=== PATIENT | female | born 1945 | race Caucasian/White ===

== ENCOUNTER 2016-12-17 06:16 | Day surgery (SDC) | payer OTHER, BC ==
[2016-12-12 10:51] VITALS: BMI 35.8
[2016-12-17] MEDS ORDERED: BACITRACIN 3.5 GM OPTHALMIC OINT TUBE ONE (07:21)
[2016-12-17] MEDS ORDERED: TETRACAINE 0.5% OPHTH SOLN 2 ML BOTTLE ONE (07:21)
[2016-12-17] MEDS ORDERED: OXYMETAZOLINE 0.05% NASAL SOLUTION 15 ML BOTTLE NS ONE (07:21)
[2016-12-17] MEDS ORDERED: THROMBIN (BOVINE) 5,000 UNIT VIAL TP ONE (07:21)
[2016-12-17] MEDS ORDERED: POVIDONE-IODINE 5% OPHTHALMIC PREP 30 ML SOLUTION ONE (07:21)
[2016-12-17] MEDS ORDERED: BUPIVACAINE HCL/PF 0.5% (5MG/ML) 10 ML VIAL ONE (07:22)
[2016-12-17] MEDS ORDERED: LIDOCAINE 1%/EPI 1:100000 (20 ML MULTI DOSE VIAL) ONE ×2 (07:22→07:48)
[2016-12-17] MEDS ORDERED: PROPOFOL 20 ML ONE ×7 (07:29→08:55)
[2016-12-17] MEDS ORDERED: MIDAZOLAM HCL 2 MG/2 ML SINGLE DOSE VIAL ONE (07:30)
[2016-12-17] MEDS ORDERED: SUCCINYLCHOLINE CHLORIDE 200 MG/10 ML VIAL ONE (07:30)
[2016-12-17] MEDS ORDERED: ceFAZolin SODIUM 1 GM VIAL ONE (08:03)
[2016-12-17] MEDS ORDERED: DEXAMETHASONE SOD PHOSPHATE 4 MG/1 ML VIAL ONE (08:27)
[2016-12-17] MEDS ORDERED: ONDANSETRON 4 MG/2 ML VIAL ONE (08:27)
[2016-12-17] MEDS ORDERED: ACETAMINOPHEN 500 MG TABLET (FP) PO PRN (09:20)
[2016-12-17] MEDS ORDERED: ONDANSETRON 4 MG/2 ML VIAL IVPUSH PRN (09:26)
[2016-12-17] MEDS ORDERED: oxyCODONE HCL 5 MG TABLET PO PRN (09:26)
[2016-12-17] MEDS ORDERED: ALBUTEROL SO4 0.083% IH SOL 2.5 MG/3 ML VIAL.NEB. NEB PRN (09:27)
[2016-12-17] MEDS ORDERED: LACTATED RINGERS SOLUTION 1,000 ML IV SCH (09:30)
[2016-12-17] MEDS ORDERED: LABETALOL HCL 5 MG/1 ML (100MG/20 ML VIAL) IVPUSH ONE (10:10)
[2016-12-17 10:56] VITALS: TEMP 98.1
[2016-12-17 11:43] VITALS: BP 135/78; PULSE 66
--- NOTE | 2016-12-17 13:34 | OP ---
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 PROCEDURE: 1. External dacryocystorhinostomy, right. 2. Lacrimal sac biopsy. 3. Silicone intubation, right lacrimal system. 4. Canaliculoplasty, right lower lid. 5. Endoscopy. SURGEON: Emanuel Gee MD ANESTHESIA: Local standby with a circuit. COMPLICATONS: None. ESTIMATED BLOOD LOSS: 5 to 10 mL. OPERATION REPORT: Patient was brought to the operating room, placed on the operating room table. Vital signs monitored by Anesthesia. Tetracaine was placed in both eyes. A tear trough incision was made in the right tear trough extending to the medial canthal tendon. Patient was placed under anesthesia. After a time-out was performed, a 50/50 mixture of 2% Xylocaine with 1:100,000 epinephrine and 0.5% Marcaine was injected in the right medial canthus, right lower lid, right upper lid, dorsal nasal artery and anterior lacrimal crest. Total 5 to 6 mL. Then, under direct visualization, the right naris was injected, the middle meatus, the septum, and the external naris, and it was packed with Cottonoids moistened with Afrin. The patient was prepped and draped in the usual fashion exposing both eyes. Left eye was closed. Tear trough incision was made on the right side, and gentle blunt spreading primarily was used to contain the anterior lacrimal crest and identify the anterior lumen and medial canthal tendon. The inferior portion of the medial canthal tendon and periosteum were incised allowing reflection of the periosteum laterally away from the sac all the way down to the posterior lacrimal crest. The lacrimal bone was penetrated, and upbiting Kerrison rongeurs were used to create a large osteotomy extending from the anterior lacrimal crest to the posterior lacrimal crest, from the medial canthal tendon down to the nasolacrimal duct. Nasal mucosa was sacrificed and removed at this point. The upper and lower puncta were dilated below. Puncta were then intubated with multiple bone probes, but they could not pass into the sac. There was a significant obstruction lateral to the junction of the canaliculus and sac. The upper canaliculus could be passed with a probe, and this tented the medial wall of the sac medially, and the sac was opened on its medial surface with a 12-blade, and anterior and posterior lacrimal sac flaps were created, and the posterior lacrimal sac flap was biopsied. The lower canaliculus could not be passed despite multiple attempts, and even dissection from within the sac toward the canaliculus did not uncover the probe. Therefore, an 18-gauge Angiocath was carefully threaded through to the canaliculus. It was after multiple dilating bone probes were passed until it reached the obstruction, and then, it was advanced into the lacrimal sac trephining a new passageway for the canaliculus into the sac. At this point, the system was intubated with Mello probes, and the newly trephined lower medial portion of the canaliculus and the upper canaliculus and these were retrieved through the right external naris with Mello hook. The anterior lacrimal sac flap was secured to the periosteum anterior to the osteotomy site after all the thrombin-soaked gauzes were removed using double-armed 4-0 chromic and then interrupted 4-0 chromic sutures covering the internal fistula. The subcuticular tissues were closed with 5-0 chromic, and the skin was closed with a running 6-0 plain suture with plastic technique. The stents were removed from the probe. Stents were tied with locking knots and secured to the right external naris with a single 6-0 Prolene with minimal tension on the left and right medial canthus. The silicone moved freely through the system. Endoscope was introduced demonstrating right septal deviation, but reasonable hemostasis and no impingement on the internal osteotomy. Afrin was sprayed into the nose, Bacitracin ointment was placed on the sutures, and the patient was awakened from anesthesia and taken to the recovery room in stable condition. Ashlie [id number]
--- NOTE | 2016-12-19 17:05 | PATH ---
Surgical Pathology Report Patient Name: DORCAS SHELL [facility]. Rec. #: [id number] /Age/Gender: 1945 (Age: 71) / F Account: [id number] Location: [facility] Taken: 12/17/2016 Received: 12/18/2016 Reported: 12/19/2016 Physicians: Emanuel Gee Specimen(s) Received RIGHT LACRIMAL SAC Clinical History Right blocked tear duct Final Diagnosis RIGHT LACRIMAL SAC, EXCISION: LACRIMAL SAC TISSUE SHOWING CHRONIC INFLAMMATION AND FIBROSIS. Electronically Signed Nubia Lakhani M.D. Gross Description Received in formalin, labeled "right lacrimal sac" is a huitron, irregular portion of soft tissue measuring 0.1 cm. in greatest dimension. The specimen is submitted in toto in one cassette. 12/18/201612/18/2016
== END 2016-12-17 11:44 | disposition home or self-care (01) ==
LOC: FASU 06:16
PROVIDERS: ATTEND Ophthalmology
PROC: 09BK0ZX Excision of Nasal Mucosa and Soft Tissue, Open Approach, Diagnostic (ICD-10-PCS; 2016-12-17)
PROC: 09JK8ZZ Inspection of Nasal Mucosa and Soft Tissue, Via Natural or Artificial Opening Endoscopic (ICD-10-PCS; 2016-12-17)
PROC: 081X0Z3 Bypass Right Lacrimal Duct to Nasal Cavity, Open Approach (ICD-10-PCS; principal; 2016-12-17 08:13)
DX: H04.551 Acquired stenosis of right nasolacrimal duct (principal); H04.221 Epiphora due to insufficient drainage, right side
CPT/HCPCS: 88304-TC; 94760

== ENCOUNTER 2017-01-07 07:28 | Day surgery (SDC) | payer OTHER, BC ==
[2016-12-31 10:01] VITALS: BMI 35.5
[2017-01-07] MEDS ORDERED: OXYMETAZOLINE 0.05% NASAL SOLUTION 15 ML BOTTLE NS ONE (08:36)
[2017-01-07] MEDS ORDERED: POVIDONE-IODINE 5% OPHTHALMIC PREP 30 ML SOLUTION ONE (08:36)
[2017-01-07] MEDS ORDERED: TETRACAINE 0.5% OPHTH SOLN 2 ML BOTTLE ONE (08:36)
[2017-01-07] MEDS ORDERED: THROMBIN (BOVINE) 5,000 UNIT VIAL TP ONE (08:36)
[2017-01-07] MEDS ORDERED: LIDOCAINE 1%/EPI 1:100000 (20 ML MULTI DOSE VIAL) ONE (08:36)
[2017-01-07] MEDS ORDERED: BUPIVACAINE HCL/PF 0.5% (5MG/ML) 10 ML VIAL ONE (08:36)
[2017-01-07] MEDS ORDERED: BACITRACIN 3.5 GM OPTHALMIC OINT TUBE ONE (08:36)
[2017-01-07] MEDS ORDERED: ACETAMINOPHEN 500 MG TABLET (FP) PO PRN (09:11)
[2017-01-07] MEDS ORDERED: MIDAZOLAM HCL 2 MG/2 ML SINGLE DOSE VIAL ONE (09:31)
[2017-01-07] MEDS ORDERED: ePHEDrine SULFATE 50 MG/1 ML AMPULE ONE ×2 (09:55→09:56)
[2017-01-07] MEDS ORDERED: PROPOFOL 20 ML ONE ×3 (09:55→11:06)
[2017-01-07] MEDS ORDERED: PROMETHAZINE HCL 25 MG/1 ML VIAL IVPUSH PRN (11:31)
[2017-01-07] MEDS ORDERED: ONDANSETRON 4 MG/2 ML VIAL IVPUSH PRN (11:31)
[2017-01-07] MEDS ORDERED: oxyCODONE HCL 5 MG TABLET PO PRN (11:31)
[2017-01-07] MEDS ORDERED: LACTATED RINGERS SOLUTION 1,000 ML IV SCH (11:45)
[2017-01-07] MEDS ORDERED: ACETAMINOPHEN 500 MG TABLET (FP) ONE (12:22)
--- NOTE | 2017-01-07 13:08 | OP ---
DATE OF OPERATION: 01/07/2017 PREOPERATIVE DIAGNOSIS: Nasolacrimal obstruction, canalicular obstruction with epiphora. POSTOPERATIVE DIAGNOSIS: Nasolacrimal obstruction, canalicular obstruction with epiphora, with complete canalicular obstruction, upper and lower lid. PROCEDURES: 1. Examination under anesthesia. 2. Conjunctival dacryocystorhinostomy, left. 3. Lacrimal sac biopsy, left. 4. Attempt at canaliculoplasty, left lower lid. 5. Endoscopy. SURGEON: Shamir Chowdhury MD ANESTHESIA: General LMA. ESTIMATED BLOOD LOSS: 5-10 mL. COMPLICATIONS: None. DESCRIPTION OF PROCEDURE: Patient brought to the operating room, placed on the operating room table. Vital signs monitored per Anesthesia. Tetracaine was placed in both eyes. She was placed under LMA anesthesia. Tear trough line was marked on the left side. Timeout was performed, and a 50/50 mixture of 2% Xylocaine, 1:100,000 epinephrine, 0.5% Marcaine was injected in the tear trough, lateral side of the nose, nasal third of the upper and lower lid, middle meatus, external naris. Left nostril was packed under direct visualization with cottonoids moistened with Afrin. The patient was prepped and draped in the usual sterile fashion exposing both eyes. Right eye was taped close with Steri-Strip. Tear trough incision was made with a 15-blade. This was carried down with sharp and blunt dissection to the anterior lachrymal crest, and angular vein was cauterized. The periosteum was incised and reflected laterally, as was the anterior limb of the medial canthal tendon, exposing the lachrymal fossa which was penetrated posterior to the maxillary bone. An upbiting Kerrison rongeur was used to create an osteotomy centered on the anterior lacrimal crest from the medial canthal tendon to the nasolacrimal duct. Some nasal mucosa was removed during this process. The upper and lower punctate were not dilated. The nose was repacked with cottonoids moistened with thrombin and small amount of turbinectomy was performed as well to make way for the internal fistula. Following this, the upper and lower puncta were dilated and attempts were made to pass the bone probes through the canaliculus into the sac. On the lower canaliculus it could be advanced through multiple strictures, tenting the medial wall of the sac, and the sac was opened with a 12-blade and found to be full of scar tissue, which was biopsied. Anterior and posterior lachrymal duct flaps were created with relaxing incisions, but no real passage of the lower canaliculus to the sac could be clearly created even the tip of the probe could be identified and brought in through the lateral wall of the sac. The passageway was so tight and restrictive and there was way too much resistance on movement of the probe through the lower canaliculus that this would not be a functioning canaliculus. The upper canaliculus could not even be probed through the lachrymal sac. Therefore, it was clear that simple intubation of the lower canaliculus would not be effective in relief of the epiphora and that a conjunctival dacryocystorhinostomy was indicated. Therefore, the caruncle was injected with 2% Xylocaine, 1:100,000 epinephrine. The caruncle was excised. Cautery was used for hemostasis, and using a straight 15-degree Micro-Sharp, passageway was made from the caruncular bed into the middle meatus. This was widened with bone probe punctal dilator and eventually with a straight hemostat due to the presence of scar tissue in the lateral wall of the sac. Once the passageway was opened adequately, a small amount of middle turbinectomy was performed. The middle turbinate was encroaching on the passageway of the Dubon tube and small turbinectomy was performed with minimal bleeding. The probe was advanced from the caruncular bed and measured 16 mm. It was felt that 12-mm Dubon tube would be appropriate, and therefore a 12-mm Dubon tube with a suture hole was passed over bone probe, which was then passed through the tract and then the Dubon tube was advanced and seated nicely in the middle meatus and caruncular bed. The anterior lachrymal sac flap was sutured to the anterior mucosal flap and to periosteum anterior to the osteotomy with double-arm 4-0 chromic suture. Deep tissues were closed with 5-0 chromic suture, as were subcuticular tissues, and the skin was closed with interrupted and running 6-0 plain suture. The Dubon tube was secured into the medial canthal tissues with double-arm 5-0 Prolene suture passed through the suture hole and tied through a bolster. Mastisol was placed on the suture. The bone probe was removed. The endoscope was introduced, demonstrating good positioning and clearance of the Dubon tube with no impingement on septum or turbinate. Afrin was sprayed in the nose, and the patient was awakened and taken to the recovery room. SHAMIR CHOWDHURY M.D. [id number]
[2017-01-07 13:14] VITALS: TEMP 97.6
[2017-01-07 13:16] VITALS: BP 139/72; PULSE 68
--- NOTE | 2017-01-09 12:38 | PATH ---
Surgical Pathology Report Patient Name: DORCAS SHELL [facility]. Rec. #: [id number] /Age/Gender: 1945 (Age: 72) / F Account: [id number] Location: [facility] Taken: 01/07/2017 Received: 01/07/2017 Reported: 01/09/2017 Physicians: Emanuel Gee Specimen(s) Received A: LEFT LACRIMAL SAC B: INSIDE LACRIMAL SAC (LEFT) C: CARUNCLE LEFT EYE Clinical History Left blocked tear duct Final Diagnosis A. LEFT LACRIMAL SAC, BIOPSY: BENIGN FIBROUS TISSUE WITH CHRONIC INFLAMMATION. B. INSIDE LACRIMAL SAC LEFT, BIOPSY: BENIGN GLANDULAR MUCOSA WITH MARKED CHRONIC INFLAMMATION. C. LEFT EYE CARUNCLE, EXCISION: SKIN AND CONJUNCTIVAL TISSUE WITH NON-SPECIFIC CHRONIC INFLAMMATION. Electronically Signed Low Velázquez M.D. Gross Description A. Received in formalin labeled "left lacrimal sac," is a 0.1 cm in greatest dimension huitron soft tissue fragment. The specimen is submitted in toto in one cassette. B. Received in formalin labeled "inside lacrimal sac left," is a 0.1 cm in greatest dimension huitron soft tissue fragment. The specimen is submitted in toto in one cassette. C. Received in formalin labeled "caruncle left eye," are 2 huitron soft tissue fragments measuring 0.3 and 0.4 cm in greatest dimension. The specimens are submitted in toto in one cassette. 01/08/201701/08/2017
== END 2017-01-07 13:00 | disposition home or self-care (01) ==
LOC: FASU 07:28
PROVIDERS: ATTEND Ophthalmology
PROC: 081Y0Z3 Bypass Left Lacrimal Duct to Nasal Cavity, Open Approach (ICD-10-PCS; principal; 2017-01-07 10:04)
DX: H04.552 Acquired stenosis of left nasolacrimal duct (principal); H04.222 Epiphora due to insufficient drainage, left side
CPT/HCPCS: 88304-TC; 94760

== ENCOUNTER 2017-02-04 07:40 | Day surgery (SDC) | payer OTHER, BC ==
[2017-01-31 14:30] VITALS: BMI 34.8
[2017-02-04] MEDS ORDERED: TETRACAINE 0.5% OPHTH SOLN 2 ML BOTTLE ONE (08:47)
[2017-02-04] MEDS ORDERED: BUPIVACAINE HCL/PF 0.5% (5MG/ML) 10 ML VIAL ONE (08:47)
[2017-02-04] MEDS ORDERED: BACITRACIN 3.5 GM OPTHALMIC OINT TUBE ONE (08:47)
[2017-02-04] MEDS ORDERED: LIDOCAINE 1%/EPI 1:100000 (20 ML MULTI DOSE VIAL) ONE (08:47)
[2017-02-04] MEDS ORDERED: POVIDONE-IODINE 5% OPHTHALMIC PREP 30 ML SOLUTION ONE (08:47)
[2017-02-04] MEDS ORDERED: ACETAMINOPHEN 500 MG TABLET (FP) PO PRN (09:02)
[2017-02-04] MEDS ORDERED: PROPOFOL 20 ML ONE ×5 (09:27→12:23)
[2017-02-04] MEDS ORDERED: MIDAZOLAM HCL 2 MG/2 ML SINGLE DOSE VIAL ONE (09:27)
[2017-02-04] MEDS ORDERED: LIDOCAINE HCL/PF 2% SDV 5ML VIAL ONE (09:28)
[2017-02-04] MEDS ORDERED: LIDOCAINE HCL 2% JELLY (5 ML/TUBE) ONE (09:28)
[2017-02-04] MEDS ORDERED: ONDANSETRON 4 MG/2 ML VIAL ONE (09:28)
[2017-02-04] MEDS ORDERED: DEXAMETHASONE SOD PHOSPHATE 4 MG/1 ML VIAL ONE (09:28)
[2017-02-04] MEDS ORDERED: ceFAZolin SODIUM 1 GM VIAL ONE (09:28)
[2017-02-04] MEDS ORDERED: OXYMETAZOLINE 0.05% NASAL SOLUTION 15 ML BOTTLE NS ONE (09:36)
[2017-02-04] MEDS ORDERED: ePHEDrine SULFATE 50 MG/1 ML AMPULE ONE (10:29)
[2017-02-04] MEDS ORDERED: DESFLURANE GAS 240 ML BOTTLE IH ONE (11:53)
[2017-02-04] MEDS ORDERED: oxyCODONE HCL 5 MG TABLET PO PRN ×2 (12:46)
[2017-02-04] MEDS ORDERED: ONDANSETRON 4 MG/2 ML VIAL IVPUSH PRN (12:46)
[2017-02-04] MEDS ORDERED: PROMETHAZINE HCL 25 MG/1 ML VIAL IVPUSH PRN (12:46)
[2017-02-04] MEDS ORDERED: LACTATED RINGERS SOLUTION 1,000 ML IV SCH (13:00)
[2017-02-04 13:48] VITALS: PULSE 73
[2017-02-04 15:07] VITALS: TEMP 98
[2017-02-04 16:42] VITALS: BP 139/69
--- NOTE | 2017-02-06 11:02 | PATH ---
Surgical Pathology Report Patient Name: DORCAS SHELL [facility]. Rec. #: [id number] /Age/Gender: 1945 (Age: 72) / F Account: [id number] Location: [facility] Taken: 02/04/2017 Received: 02/04/2017 Reported: 02/06/2017 Physicians: Emanuel Gee Specimen(s) Received A: LACRIMAL SAC RIGHT B: BONES BIOPSY RIGHT C: COLON LACRIMAL INTUBATION SET RIGHT Clinical History Preoperative diagnosis: Blocked tear duct Postoperative diagnosis: Same Final Diagnosis A. RIGHT LACRIMAL SAC, BIOPSY: FIBROUS TISSUE WITH CHRONIC INFLAMMATION, AND ADMIXED BLOOD VESSELS. NO INTACT EPITHELIUM IDENTIFIED. B. BONE, RIGHT, BIOPSY: FRAGMENTS OF BENIGN BONE, AND RESPIRATORY MUCOSA WITH CHRONIC INFLAMMATION. C. COLON LACRIMAL INTUBATION SAC, RIGHT EYE, REMOVAL: FIBRINOPURULENT MATERIAL WITH ASSOCIATED BACTERIAL FORMS NOTED. PORTION OF TUBING PRESENT (GROSS ONLY). Comment: Also see [id number] and [id number]. Electronically Signed Low Velázquez M.D. Gross Description A. Received in formalin labeled "lacrimal sac right," is a 0.3 cm greatest dimension huitron soft tissue fragment. The specimen is submitted in toto in one cassette. B. Received in formalin labeled "bones biopsy right," is a 0.8 x 0.6 x 0.3 cm aggregate of huitron bone fragments. The specimen is submitted in toto in one cassette, following decalcification. C. Received in formalin labeled "Colon lacrimal intubation set right eye," is a 0.9 x 0.5 x 0.1 cm portion of huitron soft tissue. Also received within the same container is a 5.5 cm in length clear portion of tubing. The soft tissue is submitted in toto in one cassette. DL/02/05/2017 saudi02/05/2017
--- NOTE | 2017-02-07 07:56 | OP ---
DATE OF OPERATION: 02/04/2017 PREOPERATIVE DIAGNOSIS: Nasolacrimal duct obstruction, both eyes. PROCEDURE: 1. Conjunctival dacryocystorhinostomy on the right. 2. Lacrimal sac biopsy on the right. 3. Removal of silicone stent, right. 4. Endoscopy, right and left. 5. Conjunctival dacryocystorhinostomy on the left. SURGEON: Shamir Chowdhury MD ANESTHESIA: General. COMPLICATIONS: None. ESTIMATED BLOOD LOSS: 10-20 mL. DESCRIPTION OF OPERATIVE PROCEDURE: Patient brought to the operating room, placed under general anesthesia. Tear trough was marked in the right tear trough. A 50:50 mixture of 2% Xylocaine and 1:100,000 epinephrine and 0.5% Marcaine was injected in the tear trough down to the lateral wall of the nose, dorsal nasal artery, and anterior lacrimal crest and in the middle meatus and the septum, middle turbinate which was then packed on the right and left with cottonoids moistened with Afrin. The patient was then prepped and draped in usual sterile fashion, exposing both eyes. The left eye was taped closed, and the following procedures performed on the right. Incision was made in the tear trough. This was carried down to the periosteum. Gentle spreading. A [place] needle was used to incise the periosteum and the anterior limb of the medial canthal tendon. Tissues were reflected laterally, exposing the lacrimal sac fossa. There was a mucosal anastomosis from prior DCR which was released, and this allowed for access to the nose. The osteotomy was widened significantly, and an anterior lacrimal sac flap was created. The upper and lower puncta were dilated, and the medial wall of the sac was incised with a 12 blade, creating anterior and posterior medial lacrimal sac flaps. The silicone stents were seen and passed freely through the system. However, they were nonfunctional as far as the patient was concerned. Therefore, they were removed. A caruncle was excised, and in the bed of the caruncle, an 18-gauge angio, followed by a micro sharp and then a punctal dilator was passed to create a track from the caruncular bed into the middle meatus. Part of the middle turbinate was removed, and also part of the ethmoid was removed in this process of creating this internal fistula. Then, a Dubon tube 13 mm x 4 mm was passed over a Alejandre probe and passed through the track which was created. The anterior lacrimal sac flap was sutured to the anterior nasal mucosal flap with a mattressed 4-0 chromic suture which was also secured to the periosteum. Subcuticular tissues were closed with 5-0 chromic and the skin with a running 6-0 plain. Double-arm 5-0 Prolene was passed through the suture hole, and the Dubon tube was then passed to the medial canthal tissue, securing it into place. The endoscope was introduced, demonstrating good positioning without impingement of the Dubon tube, and nasolacrimal irrigation through the tube was freely patent. Attention was turned to the left side. Endoscope was introduced and mucosal tissues were removed around the area of the presumed Dubon tube. A probe was passed with a Dubon tube. However, it could still not be visualized. Therefore, it was determined that this side had to be opened. Tear trough was marked. Injections were given as per the right side. Incision was carried down to the anterior lacrimal crest. Tissues were reflected laterally. The mucosal anastomosis was opened, and the area of the Dubon tube was identified. The Dubon tube was removed over a probe, and then all scar tissue was removed. The bony osteotomy was significantly widened inferiorly in order to allow for improved angulation of the Dubon tube in an inferior fashion, and the middle turbinate was partially removed as well. This created a nice open osteotomy with a nice open field for the Dubon tube which was replaced. The anterior lacrimal sac was secured to the anterior nasal mucosal flap with a mattress with an interrupted 4-0 chromic suture, which was also secured to the periosteum. Deep tissues were closed with 5-0 chromic and the skin with interrupted 6-0 plain. Dubon tube was secured with double-arm 5-0 Prolene through the medial canthal tissues into the suture hole such that the Dubon tube could be advanced laterally just slightly but not enough for it to dislocate. Each Dubon tube irrigated freely. Bacitracin was placed on the Dubon tube, and the endoscope was introduced, and any remaining mucosal folds or turbinate folds that might be anywhere near or encroaching on the Dubon tube was removed with a micro alligator under endoscopic visualization. Afrin was sprayed in the nose, and the patient was awakened from general anesthesia and taken to the recovery room. SHAMIR CHOWDHURY M.D. [id number]
== END 2017-02-04 16:40 | disposition home or self-care (01) ==
LOC: FASU 07:40
PROVIDERS: ATTEND Ophthalmology
PROC: 081X0J3 Bypass Right Lacrimal Duct to Nasal Cavity with Synthetic Substitute, Open Approach (ICD-10-PCS; 2017-02-04)
PROC: 081Y0J3 Bypass Left Lacrimal Duct to Nasal Cavity with Synthetic Substitute, Open Approach (ICD-10-PCS; principal; 2017-02-04 10:12)
DX: H04.553 Acquired stenosis of bilateral nasolacrimal duct (principal)
CPT/HCPCS: 88304-TC; 88311-TC; 94010